=== PATIENT | female | born 2000 | race African-American/Black ===

== ENCOUNTER 2021-05-24 17:08 | Emergency (ER) | payer OTHER, SELFPAY ==
--- NOTE | ~2021-05-24 | CT_ITS ---
EXAMINATION: CT ABDOMEN AND PELVIS WITH CONTRAST CLINICAL INFORMATION: Periumbilical pain COMPARISON: None TECHNIQUE: Multidetector volumetric images were obtained from the superior aspect of the liver through the pubic symphysis following administration 85 mL of Omnipaque 350 intravenous contrast. Sagittal and coronal reformatted images were obtained on the technologist's workstation. Oral contrast: No This CT examination was performed using dose optimization techniques as appropriate, variously including the following: *Automated exposure control *Adjustment of mA and/or kV according to patient size (this includes techniques or standardized protocols for targeted exams where dose is matched to indication/reason for exam; i.e. extremities or head) *Use of iterative reconstruction technique DLP: 343 mGy-cm FINDINGS: LUNG BASES: The visualized lung bases are unremarkable. LIVER, GALLBLADDER, AND BILIARY TREE: The liver is normal in size, shape, and attenuation. No focal hepatic lesion or biliary ductal dilatation is present. The gallbladder is unremarkable with no evidence of radiopaque gallstones, gallbladder wall thickening, or obvious pericholecystic inflammatory changes. PANCREAS: Unremarkable. SPLEEN: Unremarkable. ADRENAL GLANDS: Unremarkable. KIDNEYS AND URETERS: The kidneys are normal in size, shape, and attenuation. No hydronephrosis, hydroureter, or calculi seen. No perinephric stranding. BLADDER: Unremarkable. GASTROINTESTINAL TRACT: The small and large bowel are unremarkable. The appendix is fluid-filled. ABDOMINAL WALL: No significant hernia is appreciated. LYMPH NODES: Normal. VASCULAR: Unremarkable. PELVIC VISCERA: Heterogeneous enhancement of the uterus. Small amount of free fluid in the pelvis. Corpus luteum in the right ovary. OSSEOUS STRUCTURES: Unremarkable. CT/CT abdomen pelvis w con IMPRESSION: 1. Corpus luteum in the right ovary and small amount of free fluid in the pelvis. 2. Normal appendix.
[2021-05-24 17:15] VITALS: BP 115/61; PULSE 91; RESP 18; TEMP 37.5; O2SAT 99; BMI 22.1
--- NOTE | 2021-05-24 18:06 | ED.ABDPAIN ---
HPI - Abdominal Pain General Chief Complaint: Abdominal Pain <Maria Luisa Segundo NP - Last Filed: 05/24/21 18:47> Stated Complaint: Umbilical pain <Maria Luisa Segundo NP - Last Filed: 05/24/21 18:47> Time Seen by Provider: 05/24/21 17:52 <Maria Luisa Segundo NP - Last Filed: 05/24/21 18:47> Source: patient <Maria Luisa Segundo NP - Last Filed: 05/24/21 18:47> Mode of arrival: ambulatory <Maria Luisa Segundo NP - Last Filed: 05/24/21 18:47> Limitations: no limitations <Maria Luisa Segundo NP - Last Filed: 05/24/21 18:47> History of Present Illness HPI narrative: 21 yo female here with complaints of abdominal pain which she reports is around her belly button and described as pressure and pain since this morning. No nausea, vomiting, diarrhea, urinary symptoms. Patient is sexually active with 1 male partner. She denies any concern for STD exposure. No vaginal discharge, rashes or lesions. <KELLY Wilkes Last Filed: 05/24/21 18:47> Related Data Allergies/Adverse Reactions: Allergies Allergy/AdvReac Type Severity Reaction Status Date / Time No Known Allergies Allergy Verified 05/24/21 17:52 <KELLY iWlkes Last Filed: 05/24/21 18:47> Review of Systems Review of Systems Yes all other systems are reviewed and are negative <Maria Luisa Segundo NP - Last Filed: 05/24/21 18:47> Constitutional: Reports no additional constitutional complaints, Denies body ache(s), Denies chills, Denies fever(s), Denies headache(s) and Denies weakness <KELLY Wilkes Last Filed: 05/24/21 18:47> Eyes: Reports no additional eye complaints and Denies change in vision <KELLY Wilkes Last Filed: 05/24/21 18:47> Reports system reviewed and no additional complaints, except as documented, Denies dizziness, Denies headache(s), Denies nasal congestion, Denies nasal discharge and Denies neck pain <Maria Luisa Segundo NP - Last Filed: 05/24/21 18:47> Cardiovascular: Reports no additional cardiovascular complaints, Denies chest pain, Denies leg edema and Denies dyspnea <Maria Luisa Segundo NP - Last Filed: 05/24/21 18:47> Respiratory: Reports no additional respiratory complaints, Denies cough and Denies dyspnea <Maria Luisa Segundo NP - Last Filed: 05/24/21 18:47> Gastrointestinal: Reports no additional gastrointestinal complaints, Reports abdominal pain, Denies diarrhea, Denies nausea and Denies vomiting <Maria Luisa Segundo NP - Last Filed: 05/24/21 18:47> Genitourinary: Reports no additional female genitourinary complaints and Denies urinary incontinence <Maria Luisa Segundo NP - Last Filed: 05/24/21 18:47> Musculoskeletal: Reports no additional musculoskeletal complaints, Denies back pain, Denies arthralgias, Denies joint swelling, Denies neck pain, Denies numbness and Denies tingling <Maria Luisa Segundo NP - Last Filed: 05/24/21 18:47> Skin/Breast: Reports system reviewed and no additional complaints, except as docu and Denies rash <Maria Luisa Segundo NP - Last Filed: 05/24/21 18:47> Reports system reviewed and no additional complaints, except as documented, Denies dizziness, Denies headache(s), Denies numbness, Denies tingling and Denies weakness <Maria Luisa Segundo NP - Last Filed: 05/24/21 18:47> [facility] Past Medical History Attestation statement: The following information was validated with the patient. <Maria Luisa Segundo NP - Last Filed: 05/24/21 18:47> Source: old records reviewed and nursing notes reviewed <MariaL uisa Segundo NP - Last Filed: 05/24/21 18:47> Social History Social History: Social History Advance Directives: No Advance Directives Information Provided: No <KELLY Wilkes Last Filed: 05/24/21 18:47> Physical Exam ED Vital Signs: Vital Signs - 24 hr 05/24/21 17:15 05/24/21 20:14 Temperature 99.5 F 98.5 F Pulse Rate 91 79 Respiratory Rate 18 16 Blood Pressure 115/61 96/55 L Pulse Oximetry 99 99 BMI result Body Mass Index 22.1 <Maria Luisa Segundo NP - Last Filed: 05/24/21 18:47> Const General: cooperative, healthy appearing, comfortable and no acute distress <Maria Luisa Segundo NP - Last Filed: 05/24/21 18:47> Orientation/consciousness: patient oriented x3 <Maria Luisa Segundo NP - Last Filed: 05/24/21 18:47> Limitations: no limitations <Maria Luisa Segundo NP - Last Filed: 05/24/21 18:47> HENMT Head: Yes normal to inspection <Maria Luisa Segundo NP - Last Filed: 05/24/21 18:47> Ears: hearing grossly normal bilaterally and TM's normal bilaterally <Maria Luisa Segundo NP - Last Filed: 05/24/21 18:47> General nose exam: Normal external nose present <Maria Luisa Segundo NP - Last Filed: 05/24/21 18:47> Face and sinus: Yes normal facial exam <Maria Luisa Segundo NP - Last Filed: 05/24/21 18:47> Mouth: Normal oral and palatal mucosa present <Maria Luisa Segundo NP - Last Filed: 05/24/21 18:47> Teeth and gingiva: dentition normal <Maria Luisa Segundo NP - Last Filed: 05/24/21 18:47> Throat: Yes posterior oropharynx normal, Yes tonsils normal and Yes uvula midline <Maria Luisa Segundo NP - Last Filed: 05/24/21 18:47> Eyes General: appearance normal, both eyes and all related structures <Maria Luisa Segundo NP - Last Filed: 05/24/21 18:47> Pupils: Equal, round and reactive pupils present <Maria Luisa Segundo NP - Last Filed: 05/24/21 18:47> Neck Neck: Yes normal visual inspection, Yes full ROM, Yes no lymphadenopathy and Yes no meningeal signs <Maria Luisa Segundo NP - Last Filed: 05/24/21 18:47> Chest Chest palpation & inspection: normal inspection of the chest <Maria Luisa Segundo NP - Last Filed: 05/24/21 18:47> Resp Effort & Inspection: normal respiratory effort <Maria Luisa Segundo NP - Last Filed: 05/24/21 18:47> Auscultation: clear to auscultation bilaterally <Maria Luisa Segundo NP - Last Filed: 05/24/21 18:47> Cardio Rate: regular rate <Maria Luisa Segundo NP - Last Filed: 05/24/21 18:47> Rhythm: regular rhythm <Maria Luisa Segundo NP - Last Filed: 05/24/21 18:47> Peripheral pulses: Peripheral pulses 2+ throughout <Maria Luisa Segundo NP - Last Filed: 05/24/21 18:47> GI Inspection: Yes normal to inspection <Maria Luisa Segundo [employer] - Last Filed: 05/24/21 18:47> Palpation (GI): Soft to palpation, Tenderness to palpation present (GI) (mid abdomen) and Guarding due to palpation present (GI) <Maria Luisa Segundo NP - Last Filed: 05/24/21 18:47> General: Yes no CVA tenderness <Maria Luisa Segundo NP - Last Filed: 05/24/21 18:47> Back/Spine/Pelvis Back: no CVA tenderness <Maria Luisa Segundo NP - Last Filed: 05/24/21 18:47> Thoracic/Lumbar Spine: thoracic and lumbar spine normal to inspection <Maria Luisa Segundo NP - Last Filed: 05/24/21 18:47> Skin General skin exam: no rashes or lesions noted <Maria Luisa Segundo NP - Last Filed: 05/24/21 18:47> Neuro General: patient oriented x3, tone normal, moves all extremities and no meningeal signs <Maria Luisa Segundo [employer] - Last Filed: 05/24/21 18:47> Cranial nerves: Yes Equal, round and reactive pupils present <Maria Luisa Segundo NP - Last Filed: 05/24/21 18:47> Cognition (Neuro): normal cognition <Maria Luisa Segundo NP - Last Filed: 05/24/21 18:47> Extrem General: Yes normal to inspection, Yes no pedal edema and Yes no calf tenderness <Maria Luisa Segundo NP - Last Filed: 05/24/21 18:47> Course Course Course Narrative: 21 yo female here with mid abdomen pain x 1 day with no other associated symptoms. Abdomen soft/tender with guarding. Will check labs, UA, CT A/P No abdominal surgical history [id number]-Sign out to Janki [employer] pending CT scan. <Maria Luisa Segundo NP - Last Filed: 05/24/21 18:47> MDM - Abdominal Pain Differential Diagnosis Differential diagnosis: Likely abdominal pain, acute appendicitis and gastroenteritis <Maria Luisa Segundo NP - Last Filed: 05/24/21 18:47> Medical Records Attestation: I reviewed the patient's medical records. <Maria Luisa Segundo NP - Last Filed: 05/24/21 18:47> Lab Data Attestation: I reviewed the patient's lab results. <Maria Luisa Segundo NP - Last Filed: 05/24/21 18:47> Result diagrams: : 05/24/21 18:11 05/24/21 18:11 <Maria Luisa Segundo NP - Last Filed: 05/24/21 18:47> Labs: Lab Results 05/24/21 05/24/21 05/24/21 Range/Units 18:01 18:01 18:11 WBC 8.9 (4.8-10.8) X10*3/uL RBC 4.37 (4.20-5.50) X10*6/uL Hgb 13.3 (12.0-16.0) g/dl Hct 38.9 (37.0-47.0) % MCV 89.0 (80.0-98.0) fL MCH 30.4 (27.0-33.0) pg MCHC 34.2 (31.0-35.0) g/dl RDW 11.9 (11.0-16.0) % Plt Count 235 (160-400) X10*3/uL MPV 9.7 (9.4-12.3) fL Immature Gran % (Auto) 0.2 (0.0-0.4) % Neut % (Auto) 78.2 H (45-73) % Lymph % (Auto) 14.4 L (20-40) % [place] % (Auto) 5.9 (2-11) % Eos % (Auto) 1.0 (0-4) % Baso % (Auto) 0.3 (0-2) % Lymph # (Auto) 1.3 (1.2-4.9) X10*3/uL [place] # (Auto) 0.5 (0.1-1.2) X10*3/uL Eos # (Auto) 0.1 (0.0-0.4) X10*3/uL Baso # (Auto) 0.0 (0.0-0.2) X10*3/uL Abs Immat Gran (auto) 0.02 (0.00-0.03) X10*3/uL Absolute Neuts (auto) 6.9 (2.0-8.3) x10*3/uL Absolute Nucleated RBC 0.000 (0.0-0.012) X10*3/uL Nucleated RBC % (auto) 0.0 (0.0-0.2) /100WBC Sodium (135-145) mmol/L Potassium (3.3-5.1) mmol/L Chloride (96-108) mmol/L Carbon Dioxide (22-29) mmol/L Anion Gap (12-20) BUN (9-16) mg/dL Creatinine (0.5-1.4) mg/dL Estim Creat Clear Calc Estimated GFR Random Glucose (60-115) mg/dL Calcium (8.4-10.2) mg/dL Total Bilirubin (0.0-1.0) mg/dL Direct Bilirubin (0.0-0.5) mg/dL AST (5-31) U/L ALT (0-31) U/L Alkaline Phosphatase (39-117) U/L Total Protein (6.5-8.0) g/dL Albumin (3.5-5.0) g/dL Lipase (8-78) U/L Urine Color YELLOW Urine Appearance CLEAR Urine pH 6.5 (5.0-8.0) Ur Specific [place] 1.025 (1.005-1.025) Urine Protein NEG (NEG-TRACE) MG/DL Urine Glucose (UA) NEG (NEG) MG/DL Urine Ketones 5 (NEG) MG/DL Urine Blood NEG (NEG) Urine Nitrite NEG (NEG) Ur Leukocyte Esterase NEG (NEG) Urine Test NEGATIVE (NEGATIVE) 05/24/21 05/24/21 Range/Units 18:11 18:11 WBC (4.8-10.8) X10*3/uL RBC (4.20-5.50) X10*6/uL Hgb (12.0-16.0) g/dl Hct (37.0-47.0) % MCV (80.0-98.0) fL MCH (27.0-33.0) pg MCHC (31.0-35.0) g/dl RDW (11.0-16.0) % Plt Count (160-400) X10*3/uL MPV (9.4-12.3) fL Immature Gran % (Auto) (0.0-0.4) % Neut % (Auto) (45-73) % Lymph % (Auto) (20-40) % [place] % (Auto) (2-11) % Eos % (Auto) (0-4) % Baso % (Auto) (0-2) % Lymph # (Auto) (1.2-4.9) X10*3/uL [place] # (Auto) (0.1-1.2) X10*3/uL Eos # (Auto) (0.0-0.4) X10*3/uL Baso # (Auto) (0.0-0.2) X10*3/uL Abs Immat Gran (auto) (0.00-0.03) X10*3/uL Absolute Neuts (auto) (2.0-8.3) x10*3/uL Absolute Nucleated RBC (0.0-0.012) X10*3/uL Nucleated RBC % (auto) (0.0-0.2) /100WBC Sodium 137 (135-145) mmol/L Potassium 3.6 (3.3-5.1) mmol/L Chloride 105 (96-108) mmol/L Carbon Dioxide 25 (22-29) mmol/L Anion Gap 11 L (12-20) BUN 15 (9-16) mg/dL Creatinine 0.96 (0.5-1.4) mg/dL Estim Creat Clear Calc 76.7 Estimated GFR > 60 Random Glucose 89 (60-115) mg/dL Calcium 9.6 (8.4-10.2) mg/dL Total Bilirubin 0.8 (0.0-1.0) mg/dL Direct Bilirubin 0.3 (0.0-0.5) mg/dL AST 19 (5-31) U/L ALT 14 (0-31) U/L Alkaline Phosphatase 44 (39-117) U/L Total Protein 7.2 (6.5-8.0) g/dL Albumin 4.4 (3.5-5.0) g/dL Lipase 41 (8-78) U/L Urine Color Urine Appearance Urine pH (5.0-8.0) Ur Specific [place] (1.005-1.025) Urine Protein (NEG-TRACE) MG/DL Urine Glucose (UA) (NEG) MG/DL Urine Ketones (NEG) MG/DL Urine Blood (NEG) Urine Nitrite (NEG) Ur Leukocyte Esterase (NEG) Urine Test (NEGATIVE) <Maria Luisa Segundo NP - Last Filed: 05/24/21 18:47> Discharge Plan Discharge Clinical Impression: Abdominal pain, Corpus luteum cyst of right ovary <Maria Luisa Segundo NP - Last Filed: 05/24/21 18:47> Patient Disposition: Home, Self-Care <Maria Luisa Segundo NP - Last Filed: 05/24/21 18:47> Instructions: Ovarian Cyst (ED), Abdominal Pain (ED) <Maria Luisa Segundo NP - Last Filed: 05/24/21 18:47> Additional Instructions: You evaluated for abdominal pain. CT scan of abdomen and pelvis indicates a right ovarian cyst. Please follow-up with your ediphone operator for further workup. If you do not have a ediphone operator please call Dr. Reyes and requested a non emergent appointment for evaluation. Take Motrin 600 mg every 6 hours as needed for pain management. Thank you for choosing this emergency department for evaluation. Please follow-up with primary care physician as needed. Return to the emergency department for any new, concerning, or worsening symptoms. <Maria Luisa Segundo NP - Last Filed: 05/24/21 18:47> Referrals: Arthur Reyes MD [Physician] - 2 days (Ovarian cyst) <Maria Luisa Segundo NP - Last Filed: 05/24/21 18:47> Interventions: ED Discharge Assessment Last Done: 05/24/21 21:29 <Maria Luisa Segundo NP - Last Filed: 05/24/21 18:47> Discharge Date/Time: 05/24/21 21:30 <Maria Luisa Segundo NP - Last Filed: 05/24/21 18:47>
[2021-05-24 18:26] LABS: MANUAL DIFF FLAG NO
[2021-05-24] MEDS: Ketorolac Tromethamine 30 MG/ML VIAL IVPUSH (18:28)
[2021-05-24 18:29] LABS: Appearance Urine CLEAR; Color Urine YELLOW; Glucose Urine UA NEG (NEG); Leukocyte Esterase Urine NEG (NEG); Nitrite Urine NEG (NEG); PH 6.5 (5.0-8.0); Specific Gravity - Urine 1.025 (1.005-1.025); Urine Blood NEG (NEG); Urine Ketones 5 MG/DL (NEG); Urine Protein NEG (NEG-TRACE)
[2021-05-24 18:31] LABS: UPreg QC Valid YES; Urine Pregnancy NEGATIVE (NEGATIVE)
[2021-05-24 18:41] LABS: Basophils Percent Auto 0.3 % (0-2); Eosinophils Absolute Auto 0.1 X10*3/uL (0.0-0.4); Hematocrit 38.9 % (37.0-47.0); Hemoglobin 13.3 g/dl (12.0-16.0); Imm Gran Abs Auto 0.02 X10*3/uL (0.00-0.03); Imm Gran Pct Auto 0.2 % (0.0-0.4); Lymphocytes Absolute Auto 1.3 X10*3/uL (1.2-4.9); Lymphocytes Percent Auto 14.4 % (20-40); Mean Corpuscular HGB Conc 34.2 g/dl (31.0-35.0); Mean Corpuscular Hemoglobin 30.4 pg (27.0-33.0); Mean Platelet Volume 9.7 fL (9.4-12.3); Monocytes Absolute Auto 0.5 X10*3/uL (0.1-1.2); Monocytes Percent Auto 5.9 % (2-11); Neutrophils Absolute Auto 6.9 x10*3/uL (2.0-8.3); Neutrophils Percent Auto 78.2 % (45-73); Platelet Count 235 X10*3/uL (160-400); Red Blood Count 4.37 X10*6/uL (4.20-5.50); Red Cell Distribution Width 11.9 % (11.0-16.0); White Blood Count 8.9 X10*3/uL (4.8-10.8)
[2021-05-24 18:42] LABS: Anion Gap 11 (12-20); Blood Urea Nitrogen 15 mg/dL (9-16); Calcium 9.6 mg/dL (8.4-10.2); Carbon Dioxide 25 mmol/L (22-29); Chloride 105 mmol/L (96-108); Creatinine Clr Calc Pharmacy 76.7; Estimated Glomerular Filt Rate > 60; Glucose Random 89 mg/dL (60-115); Potassium 3.6 mmol/L (3.3-5.1); Sodium 137 mmol/L (135-145)
[2021-05-24 18:44] LABS: Alanine Aminotransferase 14 U/L (0-31); Albumin Level 4.4 g/dL (3.5-5.0); Alkaline Phosphatase 44 U/L (39-117); Aspartate Amino Transferase 19 U/L (5-31); Bilirubin Direct 0.3 mg/dL (0.0-0.5); Bilirubin Total 0.8 mg/dL (0.0-1.0); Lipase 41 U/L (8-78); Total Protein 7.2 g/dL (6.5-8.0)
[2021-05-24] MEDS: iohexoL 350 MG/ML 100 ML INFUS..BTL IV (19:01)
[2021-05-24 20:14] VITALS: BP 96/55; PULSE 79; RESP 16; TEMP 36.9; O2SAT 99
== END 2021-05-24 21:30 | disposition home or self-care (01) ==
PROVIDERS: Nurse Practitioner Family; Emergency Provider Emergency Medicine
DX: N83.11 Corpus luteum cyst of right ovary (principal); R10.33 Periumbilical pain
CPT/HCPCS: 36415; 74177; 80048; 80076; 81003; 81025; 83690; 85025; 96374; 96375; 99284; J1885; Q9967